=== PATIENT | female | born 2005 | race Caucasian/White ===

== ENCOUNTER 2025-05-29 08:30 | Emergency (ER) | payer OTHER ==
[~2025-05-29] VITALS: Ht 167.6 cm; Wt 65.3 kg
[2025-05-29] MEDS: HYDROCODONE/ACETAMINOPHEN 5-325 MG TABLET PO ONE (09:00)
[2025-05-29 11:16] VITALS: BP 113/69; PULSE 76; RESP 20; TEMP 97.5; O2SAT 95
== END 2025-05-29 11:41 | disposition home or self-care (01) ==
LOC: EMS 08:32
DX: S09.90XA Unspecified injury of head, initial encounter (principal); M25.512 Pain in left shoulder; M54.2 Cervicalgia; Y04.0XXA Assault by unarmed brawl or fight, initial encounter; Y93.89 Activity, other specified; Y92.89 Other specified places as the place of occurrence of the external cause; Y99.8 Other external cause status
CPT/HCPCS: 70450; 71045; 72125; 99284